=== PATIENT | male | born 1955 | race Caucasian/White ===

== ENCOUNTER → 2023-04-30 09:52 | Outpatient (REF) | payer MEDICARE, SELFPAY ==
[2023-04-30 11:39] LABS: Urine Albumin Negative (Neg - Trace); Urine Bilirubin Negative (Negative); Urine Character Clear (Clear); Urine Color Yellow; Urine Glucose Negative (Negative); Urine Ketone Negative (Negative); Urine Leukocyte Negative (Negative); Urine Nitrite Negative (Negative); Urine Occult Blood Negative (Negative); Urine Urobilinogen Negative (Neg - 1+)
[2023-04-30 11:49] LABS: Calcium 9.3 mg/dl (8.4-10.2)
[2023-04-30 12:28] LABS: Protein/creatinine Ratio 0.1; Urine Protein 9 mg/dl
[2023-05-03 09:14] LABS: Intact PTH 50.5 pg/ml (13.6-85.8)
== END ==
LOC: HWLAB 09:52
PROVIDERS: ATTENDING PHYSICIAN Internal Medicine; FAMILY PHYSICIAN Nurse Practitioner Adult Health
DX: R80.9 Proteinuria, unspecified (principal); Z87.442 Personal history of urinary calculi
CPT/HCPCS: 36415; 81003; 82570; 83970; 84156

== ENCOUNTER → 2023-08-01 06:09 | Outpatient (REF) | payer MEDICARE, SELFPAY ==
[2023-08-01 09:05] LABS: ALT (SGPT) 62 U/L (0-50); AST (SGOT) 39 U/L (17-59); Albumin 3.8 g/dl (3.5-5.0); Alkaline Phosphatase 87 U/L (38-126); Blood Urea Nitrogen 27 mg/dl (9-20); Carbon Dioxide 28 mmol/L (22-30); Chloride 112 mmol/L (98-107); Glucose 115 mg/dl (70-99); HDL Cholesterol 52 mg/dl; LDL Cholesterol, Calculated 78 mg/dl; Potassium 4.3 mmol/L (3.5-5.1); Sodium 140 mmol/L (135-145); Total Bilirubin 0.5 mg/dl (0.2-1.3); Total Cholesterol 152 mg/dl (50-199); Total Protein 6.4 g/dl (6.3-8.2); Triglyceride 110 mg/dl (10-149); Very Low Density Lipoprotein 22 mg/dl (0-30); eGFR > 60.00
[2023-08-01 14:35] LABS: Glycohemoglobin (HgbA1c) 5.6 % (4.0-5.6)
== END ==
LOC: HWLAB 06:09
PROVIDERS: ATTENDING PHYSICIAN Nurse Practitioner Adult Health
DX: R74.01 Elevation of levels of liver transaminase levels (principal); E78.00 Pure hypercholesterolemia, unspecified; R73.02 Impaired glucose tolerance (oral)
CPT/HCPCS: 36415; 80053; 80061; 83036

== ENCOUNTER → 2023-08-07 06:05 | Outpatient (REF) | payer MEDICARE, SELFPAY ==
[2023-08-07 10:16] LABS: ALT (SGPT) 63 U/L (0-50); AST (SGOT) 47 U/L (17-59); Albumin 3.8 g/dl (3.5-5.0); Alkaline Phosphatase 87 U/L (38-126); Blood Urea Nitrogen 24 mg/dl (9-20); Calcium 9.4 mg/dl (8.4-10.2); Carbon Dioxide 25 mmol/L (22-30); Chloride 110 mmol/L (98-107); Glucose 102 mg/dl (70-99); Potassium 4.5 mmol/L (3.5-5.1); Sodium 142 mmol/L (135-145); Total Protein 6.4 g/dl (6.3-8.2); eGFR > 60.00
[2023-08-07 10:18] LABS: % Basophils 0.9 % (0-2); % Eosinophils 5.7 % (0-6); % Immature Granulocytes 0.1 % (0-0.5); % Lymphocytes 18.9 % (20.5-51.1); % Monocytes 8.7 % (1.7-9.3); % Neutrophils 65.7 % (42.2-75.2); Absolute Basophils 0.1 10^3/uL (0-0.2); Absolute Eosinophils 0.4 10^3/uL (0-0.7); Absolute Lymphocytes 1.5 10^3/uL (1.2-3.4); Absolute Monocytes 0.7 10^3/uL (0.1-0.6); Absolute Neutrophils 5.1 10^3/uL (1.4-6.5); Hematocrit 45.1 % (39.0-52.0); Hemoglobin 14.7 g/dL (13.0-18.0); Mean Corp Hgb Conc. 32.6 g/dL (33.0-37.0); Mean Corpuscular Hgb 31.1 pg (27.0-31.0); Mean Corpuscular Volume 95.6 fL (80.0-94.0); Mean Platelet Volume 11.3 fL (7.4-10.4); Nucleated Red Blood Cells % 0 % (-); Platelet Count 153 10^3/uL (130-400); Red Blood Cell Count 4.72 10^6/uL (4.70-6.10); Red Cell Dist. Width 12.8 % (11.5-14.5); White Blood Cell Count 7.7 10^3/uL (4.8-10.8)
[2023-08-09 06:58] LABS: Beta-2-Microglobulin 1.9 mg/L (<=3.0)
== END ==
LOC: HWLAB 06:05
PROVIDERS: ATTENDING PHYSICIAN Internal Medicine Hematology & Oncology; FAMILY PHYSICIAN Nurse Practitioner Adult Health
DX: D47.2 Monoclonal gammopathy (principal)
CPT/HCPCS: 36415; 80053; 82232; 82784; 83521; 84155; 84165; 85025; 86334

== ENCOUNTER → 2023-08-27 07:11 | Outpatient (REF) | payer MEDICARE, SELFPAY | LOC: HWRAD 07:11 | PROVIDERS: ATTENDING PHYSICIAN Nurse Practitioner Adult Health | DX: R74.01 Elevation of levels of liver transaminase levels (principal) | CPT/HCPCS: 76700 ==

== ENCOUNTER → 2023-11-05 06:06 | Outpatient (REF) | payer MEDICARE, SELFPAY ==
[2023-11-05 10:28] LABS: GGTP 59 U/L (15-73); Iron 71 ug/dl (49-181)
[2023-11-05 10:41] LABS: Percent Saturation 24 % (20-50); Total Iron Binding Capacity 293 ug/dl (261-462)
[2023-11-08 00:31] LABS: Mitochondrial M2 Ab, IgG 2.2 Units (0.0-24.9)
[2023-11-08 02:54] LABS: ANA, IgG Reflex to HEp-2 None Detected (None Detected)
[2023-11-08 04:20] LABS: Alpha-1-Antitrypsin 132 mg/dL (90-200); Ceruloplasmin 24 mg/dL (15-30)
== END ==
LOC: HWLAB 06:06
PROVIDERS: ATTENDING PHYSICIAN Physician Assistant; FAMILY PHYSICIAN Nurse Practitioner Adult Health
DX: R74.8 Abnormal levels of other serum enzymes (principal)
CPT/HCPCS: 36415; 82103; 82390; 82728; 82977; 83540; 83550; 86038; 86376; 86381

== ENCOUNTER 2024-03-07 06:26 | Inpatient (IN) | payer MEDICARE, SELFPAY ==
[2024-03-07] VITALS (12 sets, daily range): BP systolic 121–170; BP diastolic 77–104; PULSE 82; O2SAT 99; BMI 30.5
--- NOTE | 2024-03-07 03:36 | ED.GENMED ---
History of Present Illness
<ABDIRASHID Romero - Last Filed: 03/07/24 04:42>
General
Chief Complaint: Cough
Source: patient
Exam Limitations: none
Time Seen by Provider: 03/07/24 03:23
Nursing documentation reviewed up to this point in time: agreed with
History of Present Illness
History of Present Illness:
Pt is a 68 yo M with PMH of HTN who presents to the ED with cough, vomiting, diarrhea and chills since 22:00 last night. He states he began to have a cough yesterday that was severe and caused him to vomit 'phlegm' once during a cough spell. He
states he began to have chills and non-bloody diarrhea also around this time. Pt state he went to bed and then woke up around 01:00 today and vomited again. This time, he describes the vomit as 'actually vomit with food' he ate earlier in the day.
Pt states he has not vomited since then and no longer feels nauseous. He states his stomach does feel 'a little sore' but attributes it to the vomiting and describes it as 'muscle pain.' Pt denies TSAI, fever, rhinorrhea, sore throat, chest pain,
palpitations, changes in urination.
If applicable-neuro sx onset
Date of onset of symptoms: 03/06/24
Time of onset of symptoms: 22:00
Past History
<ABDIRASHID Romero - Last Filed: 03/07/24 04:42>
Past History
ED Past Medical History: HTN, Hypercholesterolemia and Other (UC, PNA, )
ED Past Surgical History: Tonsilectomy and Other (Hernia repair)
Social History
Tobacco: Non-smoker
Alcohol: Occasional
Drug: None
Personal:
Living: alone
Employment: Employed
Review of Systems
<ABDIRASHID Romero - Last Filed: 03/07/24 04:42>
Review of Systems
Allergies reviewed?: Yes
Constitutional: Reports chills; Denies fever, fatigue or night sweats
EENT: Denies sore throat or runny nose
Respiratory: Reports cough; Denies hemoptysis or trouble breathing
Cardiac: Denies chest pain or palpitations
ABD/GI: Reports abdominal pain (described by pt as 'discomfort'), nausea, vomiting and diarrhea; Denies bloody stools
: Denies dysuria, flank pain or dark urine
Musculoskeletal: Denies back pain
Neurological: Denies dizzy, headache, weakness or numbness
Phy Exam
<ABDIRASHID Romero - Last Filed: 03/07/24 04:42>
General Physical Exam
General Presentation: well appearing and no apparent distress
General age: appears stated age
General Skin: warm and dry
General Habitus: normal
General Mental: alert
General Hydration: appears well hydrated
Cardiovascular Exam
Cardiovascular Exam: no murmur and tachycardia
Pulmonary Exam
Pulmonary Exam: chest non tender, decreased breath sounds and generalized wheezing
Oxygen Status: room air
Cough: coarse cough
Gastrointestinal Exam
Gastrointestinal Exam: normal bowel sounds, non tender and soft
Neurological Exam
Neurological Exam: alert, oriented x3 and speech normal
Course
<ABDIRASHID Romero - Last Filed: 03/07/24 04:42>
Orders/Labs/Results
Orders:
Orders
03/07/24 03:37
CR Chest - 2 Views Urgent
Comment:
Reason For Exam: cough, SOB
03/07/24 03:59
CBC/With Diff [Complete Blood Count/With Diff] Urgent
CMP [Comprehensive Metabolic Panel] Urgent
COVID-19 Antigen Urgent
Source: Nasal Swab
Influenza A+B Rapid Molecular Urgent
URIEL Source: Nasal Swab
Specimen Description:
Abnormal Lab Results
03/07/24
03:59
WBC 13.4 H 10^3/uL
(4.8-10.8)
MCV 94.4 H fL
(80.0-94.0)
MCHC 32.8 L g/dL
(33.0-37.0)
MPV 11.0 H fL
(7.4-10.4)
Abs Immat Gran (auto) 0.1 H 10^3/uL
(0-0.05)
Absolute Neuts (auto) 11.7 H 10^3/uL
(1.4-6.5)
Absolute Lymphs (auto) 0.5 L 10^3/uL
(1.2-3.4)
Absolute Monos (auto) 0.9 H 10^3/uL
(0.1-0.6)
Neutrophils % 87.0 H %
(42.2-75.2)
Lymphocytes % 3.8 L %
(20.5-51.1)
BUN 31 H mg/dl
(9-20)
Glucose 121 H mg/dl
(70-99)
ALT 63 H U/L
(0-50)
03/07/24 03:59
03/07/24 03:59
Vital Signs
Initial and Last Documented VS:
Initial Vital Signs
Temp Pulse Resp BP Pulse Ox
98.9 F 118 24 170/104 98
03/07/24 02:18 03/07/24 02:18 03/07/24 02:18 03/07/24 02:18 03/07/24 02:18
Last Documented Vital Signs
Temp Pulse Resp BP Pulse Ox
99.4 F 112 21 157/93 98
03/07/24 04:12 03/07/24 04:04 03/07/24 04:04 03/07/24 04:03 03/07/24 02:18
<Harry Mercedes, DO - Last Filed: 03/07/24 05:44>
Orders/Labs/Results
Orders:
Orders
03/07/24 03:37
CR Chest - 2 Views Urgent
Comment:
Reason For Exam: cough, SOB
03/07/24 03:59
CBC/With Diff [Complete Blood Count/With Diff] Urgent
CMP [Comprehensive Metabolic Panel] Urgent
COVID-19 Antigen Urgent
Source: Nasal Swab
Influenza A+B Rapid Molecular Urgent
URIEL Source: Nasal Swab
Specimen Description:
Abnormal Lab Results
03/07/24
03:59
WBC 13.4 H 10^3/uL
(4.8-10.8)
MCV 94.4 H fL
(80.0-94.0)
MCHC 32.8 L g/dL
(33.0-37.0)
MPV 11.0 H fL
(7.4-10.4)
Abs Immat Gran (auto) 0.1 H 10^3/uL
(0-0.05)
Absolute Neuts (auto) 11.7 H 10^3/uL
(1.4-6.5)
Absolute Lymphs (auto) 0.5 L 10^3/uL
(1.2-3.4)
Absolute Monos (auto) 0.9 H 10^3/uL
(0.1-0.6)
Neutrophils % 87.0 H %
(42.2-75.2)
Lymphocytes % 3.8 L %
(20.5-51.1)
BUN 31 H mg/dl
(9-20)
Glucose 121 H mg/dl
(70-99)
ALT 63 H U/L
(0-50)
03/07/24 03:59
03/07/24 03:59
Vital Signs
Initial and Last Documented VS:
Initial Vital Signs
Temp Pulse Resp BP Pulse Ox
98.9 F 118 24 170/104 98
03/07/24 02:18 03/07/24 02:18 03/07/24 02:18 03/07/24 02:18 03/07/24 02:18
Last Documented Vital Signs
Temp Pulse Resp BP Pulse Ox
99.4 F 112 21 157/93 98
03/07/24 04:12 03/07/24 04:04 03/07/24 04:04 03/07/24 04:03 03/07/24 02:18
<ABDIRASHID Romero - Last Filed: 03/07/24 04:42>
MDM/Problems Addressed
Differential Diagnosis Includes:
PNA, gastroenteritis, viral bronchitis
<ABDIRASHID Romero - Last Filed: 03/07/24 04:42>
*Critical Care Note
Total Time (30-74mins, 75-104mins- exclusive of procedures): Not Applicable
ED Attending Note
<ABDIRASHID Romero - Last Filed: 03/07/24 04:42>
-
Portions of this chart may have been created with voice recognition software.� Occasional wrong word or��sound alike� substitutions may have occurred due to the inherent limitations of voice recognition software.
<Harry Mercedes DO - Last Filed: 03/07/24 05:44>
ED Attending Note
Patient seen and examined by attending physician: Yes
I performed the substantive portion of visit, reviewed & personally made and approve the management plan that is documented in note by myself or ANT.: Yes
ED Attending Note:
Pleasant 68-year-old male presents the emergency department with cough and near syncopal episode. He has been having vomiting, diarrhea, and chills since 10 PM Friday night. Yesterday he had a severe productive cough with vomiting up phlegm. He
states that he had diarrhea and chills during this time. Patient awakened to vomiting. He states that he was coughing and vomiting so vigorously that he nearly passed out. He became concerned because he lives alone. Patient states that the
vomiting has subsided but his cough is persistent. He does report abdominal pain every time he does cough. Denies chest pain or true shortness of breath. Patient was seen in conjunction with the PA student. I have reviewed and agree with the
history and treatment plan presented. On my independent physical exam, patient is awake, alert, and oriented x3 moderate acute distress. Heart is regular rate and rhythm. Lungs are diminished in the bases with generalized wheezing throughout.
Abdomen is soft and slightly distended which patient states is normal for him. Good bowel sounds x 4 quadrants. Skin is warm and dry. He moves all 4 extremities. He is mentating appropriately with a normal affect.
Discharge Plan
Departure
Patient Disposition: Admit
Date of Disposition: 03/07/24
Time of Disposition: 05:43
Admit to: Telemetry
Presentation/result/management discussed w/ accepting MD/DO: Hospitalist
Discharge Problem:
Aspiration pneumonia, Fever, Cough, Near syncope
Prescriptions:
No Action
benazepril 10 mg Tablet
10 mg PO DAILY
rosuvastatin 20 mg Tablet
20 mg PO DAILY
Referrals:
Beatriz Goyal DO [Family Provider] -
Interventions
Interventions:
*Risk Screen - Suicide Last Done: 03/07/24 02:18
*Neglect/Abuse Screening Last Done: 03/07/24 04:13
*ED COVID-19 Vaccine History Last Done: 03/07/24 04:13
LH-Pucuyi-Qxamosbbsu Assessment Last Done: 03/07/24 04:13
ED- Pulmonary Assessment Last Done: 03/07/24 04:13
Discharge Date and Time
Print Language: SENEGALESE
[2024-03-07 04:18] LABS: % Basophils 0.3 % (0-2); % Eosinophils 1.6 % (0-6); % Immature Granulocytes 0.4 % (0-0.5); % Lymphocytes 3.8 % (20.5-51.1); % Monocytes 6.9 % (1.7-9.3); Absolute Eosinophils 0.2 10^3/uL (0-0.7); Absolute Immature Granulocytes 0.1 10^3/uL (0-0.05); Absolute Lymphocytes 0.5 10^3/uL (1.2-3.4); Absolute Monocytes 0.9 10^3/uL (0.1-0.6); Absolute Neutrophils 11.7 10^3/uL (1.4-6.5); Hemoglobin 15.4 g/dL (13.0-18.0); Mean Corp Hgb Conc. 32.8 g/dL (33.0-37.0); Mean Corpuscular Hgb 30.9 pg (27.0-31.0); Mean Corpuscular Volume 94.4 fL (80.0-94.0); Nucleated Red Blood Cells % 0 % (-); Platelet Count 147 10^3/uL (130-400); Red Blood Cell Count 4.98 10^6/uL (4.70-6.10); Red Cell Dist. Width 12.8 % (11.5-14.5); White Blood Cell Count 13.4 10^3/uL (4.8-10.8)
[2024-03-07 04:31] LABS: ALT (SGPT) 63 U/L (0-50); AST (SGOT) 42 U/L (17-59); Albumin 4.2 g/dl (3.5-5.0); Alkaline Phosphatase 85 U/L (38-126); Blood Urea Nitrogen 31 mg/dl (9-20); COVID-19 Antigen Negative (Negative); Calcium 9.4 mg/dl (8.4-10.2); Carbon Dioxide 23 mmol/L (22-30); Chloride 107 mmol/L (98-107); Glucose 121 mg/dl (70-99); Potassium 4.3 mmol/L (3.5-5.1); Sodium 142 mmol/L (135-145); Total Bilirubin 0.7 mg/dl (0.2-1.3); Total Protein 6.7 g/dl (6.3-8.2); eGFR > 60.00
--- NOTE | 2024-03-07 06:18 | HPS.HSE ---
Family Physician
-
Family Physician: Beatriz Goyal DO
Chief Complaint
-
Cough, N/V/D
History of Present Illness
Patient is a 68y M with PMH significant for hypertension who presents to ED complaining of cough with N/V/D. Patient states that he has had mild, non-productive cough for the past 3 days or so. This evening around 10PM he had harsh paroxysms of
cough accompanied by nausea / 'dry heaves' and had loose bowels x 2 episodes. He states that he was 'wiped ut' following this and he fell asleep in a nearby chair. He woke around 1 AM with recurrent coughing and then N/V x 1 episode.
Patient states that he had diffuse muscle pain and felt 'tingling' all over. He denies any shaking chills or subjective fever. No urinary complaints.
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
In the ED he is resting comfortably. He has throat congestion and intermittent cough during exam.
Medical History
Past Medical History
Past Medical History: Reports Other
Additional Past Medical History:
Hypertension
Nephrolithiasis
Past Surgical History: Reports Other
Additional Past Surgical History:
Lithotripsy
Robotic-Assisted B/L Inguinal Hernia Repair
Social History
Tobacco: Non-smoker
Alcohol: Occasional
Drug: None
Family History
Family History: Not pertinent
Allergies / Home Medications
Allergies reflects when Allergies were last updated in [facility].
Home Medications with original date entered in [facility]
Allergy/Medication List:
Allergies
Allergy/AdvReac Type Severity Reaction Status Date / Time
Influenza Vacc,Tr Allergy BAD FLU Verified 03/07/24 02:20
*RETIRED-12/10/11
[Influenza Vacc,Tri 2008]
CATS,RAGWEED,CHICKEN FEATHERS Allergy SNEEZING,WATERY Uncoded 03/07/24 02:20
EYES
strawberries Allergy severe Uncoded 03/07/24 02:20
upset
stomach
Home Medications
benazepril 10 mg tablet 10 mg PO DAILY 05/10/22
rosuvastatin 20 mg tablet 20 mg PO DAILY 05/10/22
aspirin 81 mg chewable tablet 81 mg PO DAILY 03/07/24
multivitamin 1 tab PO DAILY 03/07/24
Review of Systems
-
History Source: Patient
A 12 point ROS was completed and negative except as noted: Yes
Constitutional: Reports Fatigue; Denies Fever or Chills
EENT: Denies Sore Throat
Respiratory: Reports Cough; Denies Hemoptysis or Trouble Breathing
Cardiac: Denies Chest Pain, Diaphoresis or Palpitations
Abdomen/GI: Reports Nausea, Vomiting and Diarrhea; Denies Abdominal Pain, Bloody Stools or Black Stools
: Denies Dysuria, Frequency or Flank Pain
Musculoskeletal: Reports Muscle Pain; Denies Joint Pain or Edema
Neurological: Reports Weakness; Denies Dizzy or Headache
Psych: Denies Depression or Anxiety
Physical Exam
Vital Signs
Vital Signs
Temp Pulse Resp BP Pulse Ox
99.4 F 112 21 157/93 98
03/07/24 04:12 03/07/24 04:04 03/07/24 04:04 03/07/24 04:03 03/07/24 02:18
Physical Exam
General: Other (68y M in no acute distress.)
HEENT: Moist mucous membranes, PERRLA and Other (Congested pharynx evident on speaking - poor / ineffectual cough.)
Respiratory: Other (Scattered coarse breath sounds throughout with diffuse wheezes. No rales.)
Cardiac: S1/S2 and Tachycardia; No Murmur
GI: Soft, Non Tender, Non Distended and Normal Bowel Sounds
Musculoskeletal: No Clubbing, No Cyanosis and No Edema
Neuro: AO x 3
Laboratory Results
-
03/07/24 03:59
03/07/24 03:59
Laboratory Results
Total Bilirubin 0.7 mg/dl (0.2-1.3) 03/07/24 03:59
AST 42 U/L (17-59) 03/07/24 03:59
ALT 63 U/L (0-50) H 03/07/24 03:59
Alkaline Phosphatase 85 U/L (38-126) 03/07/24 03:59
Impression/Plan
-
A/P: Patient is a 68y M with PMH significant for hypertension who presents to ED complaining of cough, N/V/D and weakness.
Sepsis / Pneumonia
- Admit for further evaluation and treatment.
- Patient presents with tachycardia, tachypnea, leukocytosis and cough / CXR suspicious for pneumonia.
- Associated GI symptoms raising possibility of atypical or viral infection.
- IV abx with ceftriaxone / doxycycline for now.
- Supportive care including PRN nebs, chest PT, etc.
- Follow for clinical improvement.
- Follow temp curve.
- Monitor for any new / worsening symptoms.
- IVF support.
- Speech eval for ? aspiration risk.
Benign Hypertension
- BP elevated in the ED.
- Continue benazepril (has been on this for quite some time).
- Adjust regimen as needed for adequate control.
DVT Prophylaxis: Lovenox
Code Status: Full
[2024-03-07] MEDS: UNASYN IV (06:44)
[2024-03-07 09:51] LABS: Troponin I < 0.012 ng/ml
--- NOTE | 2024-03-07 09:57 | W.PN.UPDATE ---
Update Note
Progress Note Update
Admitted this morning by Dr. Esquivel for sepsis and possible pneumonia.
Afeb, HD stable , improving HR. SaO2 on RA .
Labs noted.
Continue with abx treatments as planned. Follow Cx data.
--- NOTE | 2024-03-07 10:33 | PTOTSP ---
SPEECH THERAPY SWALLOW EVALUATION:
Patient exhibits grossly functional oropharyngeal swallow at this time. Patient without significant predisposing dysphagia risk factors. Patient endorsed history of coughing with solids for past several days, though no signs concerning for
aspiration were observed during this evaluation. Currently with pneumonia. Recommend continue Regular texture solids, thin liquids. Medications whole with liquid as best tolerated. General aspiration precautions. ST to follow briefly to assess diet
tolerance, modify as appropriate, monitor labs and CXR, and determine indication for instrumental assessment of swallowing if appropriate.
RECOMMEND:
1) Regular texture diet, thin liquids
2) Medications whole with liquid as best tolerated
3) General aspiration precautions
4) ST to follow up briefly
--- NOTE | 2024-03-07 10:44 | PTCARENOTE ---
Received patient from ED into room 2121. Patient AAOx3, VSS, ambulatory in room with standby assist. Patient with occasional nonproductive cough, denies any trouble swallowing/eating food, cleared speech eval. Patient denies any pain or nausea at
this time, states occasional chest discomfort r/t frequent cough, NSR with occasional PVCs on tele monitor. Patient oriented to room and call pichardo, regular diet order entered for patient.
[2024-03-07] MEDS: ROCEPHIN 1000 MG IV (10:54)
[2024-03-07] MEDS: VIBRAMYCIN 100 MG PO ×2 (10:55→19:39)
[2024-03-07] MEDS: NSS 1000 IV ×2 (10:55→19:40)
[2024-03-07] MEDS: ZESTRIL 10 MG PO (10:55)
[2024-03-07] MEDS: STERILE WATER FOR INJECTION 10 ML IV (10:55)
[2024-03-07] MEDS: LOW STRENGTH ASPIRIN 81 MG PO (10:58)
[2024-03-07 15:38] LABS: Troponin I < 0.012 ng/ml
[2024-03-07] MEDS: LOVENOX 40 MG SC (17:00)
[2024-03-07 20:57] LABS: Troponin I < 0.012 ng/ml
[2024-03-08 03:14] VITALS: BP 114/61
[2024-03-08] MEDS: NSS 1000 IV (04:44)
[2024-03-08 05:41] VITALS: BMI 30.7
[2024-03-08 06:58] LABS: Hematocrit 41.4 % (39.0-52.0); Hemoglobin 13.3 g/dL (13.0-18.0); Mean Corp Hgb Conc. 32.1 g/dL (33.0-37.0); Mean Corpuscular Hgb 30.9 pg (27.0-31.0); Mean Corpuscular Volume 96.3 fL (80.0-94.0); Mean Platelet Volume 11.3 fL (7.4-10.4); Platelet Count 124 10^3/uL (130-400); White Blood Cell Count 6.8 10^3/uL (4.8-10.8)
[2024-03-08 07:05] VITALS: BP 137/85
[2024-03-08 07:08] LABS: Blood Urea Nitrogen 18 mg/dl (9-20); Calcium 8.2 mg/dl (8.4-10.2); Carbon Dioxide 25 mmol/L (22-30); Chloride 109 mmol/L (98-107); Estimated Creatinine Clearance 103 ml/min; Glucose 86 mg/dl (70-99); Sodium 140 mmol/L (135-145); eGFR > 60.00
--- NOTE | 2024-03-08 07:11 | W.PN.HOSP.TC ---
Addendum entered and electronically signed by Torri Parker MD 03/08/24 16:44:
I saw and evaluated the patient independently. I reviewed the resident�s note and agree with findings and plan as documented by Dr. Garcia.
GENERAL: well developed, well nourished, male in no apparent distress
HEENT: NC/AT--no O2 requirements
HEART: regular rate and rhythm, +S1, +S2
LUNGS : clear to auscultation bilaterally
ABDOM: soft, nontender, nondistended, + bowel sounds
EXT: no cyanosis, clubbing, or edema
NEUROLOGIC: grossly intact
sepsis (POA) due to PNA--no O2 requirements--started on rocephin/doxy--feeling better--transition to oral ABX (augmentin) and OK for d/c--will need follow up CXR after ABX complete
essential HTN -- cont benzapril
HLD--cont rosuvastatin
ok for d/c--note given to return to work for
Original Note:
Today's Communication/Plan
-
Transition to oral abx on discharge today
Assessment / Plan
Assessment / Plan
A/P: Patient is a 68y M with PMH significant for hypertension who presents to ED complaining of cough, N/V/D and weakness.
#Sepsis / Pneumonia
- Patient presented with tachycardia, tachypnea, leukocytosis and cough in ED
-CXR: Low lung volumes with trace left basilar opacities which may represent pneumonia or atelectasis.
- Continue supportive care including PRN nebs
- Follow temp curve.
- Discontinue IVF
- Discontinue IV abx with ceftriaxone / doxycycline and transition to oral antibiotic Augmentin on discharge
- Speech eval:Recommended regular diet, thin liquids
#Essential Hypertension
- BP elevated in the ED.
- Continue benazepril
#HLD
- Statin was held due to elevated ALT 63, other LFTs WNL
-Resume on discharge
DVT Prophylaxis: Lovenox
Code Status: Full
Anticipated Discharge: Today
Subjective/Interval History
-
Date of Service: March 08, 2024
Patient feels as better compared to yesterday. Regular bowel movements present.
Objective Data
-
Labs:
Laboratory Results
03/08/24
06:16
WBC 6.8
Hgb 13.3
Hct 41.4
Plt Count 124 L
Sodium 140
Potassium 4.0
Chloride 109 H
Carbon Dioxide 25
BUN 18
Creatinine 0.7
Glucose 86
Calcium 8.2 L
Vital Signs:
Vital Signs
Temp Pulse Resp BP Pulse Ox
98.1 F 70 18 114/61 97
03/08/24 03:14 03/08/24 03:14 03/08/24 03:14 03/08/24 03:14 03/08/24 03:14
I&O
03/07/24 03/08/24 03/09/24
06:59 06:59 06:59
Intake Total 2720 / 2720
Output Total 250 / 250
Balance 2470 / 2470
Review of Systems
-
History Source: Patient
Constitutional: Denies Fever or Chills
EENT: Denies Sore Throat
Respiratory: Denies Trouble Breathing
Cardiac: Denies Chest Pain or Palpitations
Abdomen/GI: Denies Abdominal Pain
Neuro: Denies Headache
Physical Exam
-
General: Well Developed and No Apparent Distress
HEENT: Normocephalic
Respiratory: Clear to Auscultation
Cardiac: Regular Rhythm and S1/S2; Negative Murmur
GI: Soft, Nontender and Nondistended
Musculoskeletal: No Edema
Skin: Warm and Dry
Neuro: Awake, Alert and Oriented
Psych: Intact Judgement/Insight
[2024-03-08] MEDS: ZESTRIL 10 MG PO (08:07)
[2024-03-08] MEDS: LOW STRENGTH ASPIRIN 81 MG PO (08:07)
[2024-03-08] MEDS: VIBRAMYCIN 100 MG PO (08:07)
[2024-03-08 09:00] VITALS: BP 105/76; PULSE 81; O2SAT 97
[2024-03-08] MEDS: ROCEPHIN 1000 MG IV (10:23)
[2024-03-08] MEDS: STERILE WATER FOR INJECTION 10 ML IV (10:23)
--- NOTE | 2024-03-08 10:28 | PTOTSP ---
pt currently demonstrates ability to complete simple ADLs, functional transfers, ambulation with supervision to no assistance. no acute OT needs identified at this time, will sign off.
[2024-03-08 11:00] VITALS: BP 157/92
--- NOTE | 2024-03-08 13:48 | CM ---
Patient seen at bedside with physicians. Patient stated that he lives alone in an apartment. Patient stated he goes to [facility] for pharmacy needs and that he has PCP Dr. Goyal. Patient requested note to return to work and plan is for
discharge home with no VN needs. Patient stated that he would have ride home. CM will continue to follow for discharge planning needs.
Plan; home with no needs .
--- NOTE | 2024-03-08 15:39 | W.DCSUMMARY ---
Addendum entered and electronically signed by Torri Parker MD 03/08/24 16:46:
Read, reviewed, and agree. See same day progress note for additional details. Time spent coordinating care, DC planning, review of DC plan of care with resident, transition of care, review of records in EMR, med rec, consults, notes, d/w
consultants, nursing, family, and CM = < 30 minutes.
Original Note:
Discharge Summary
Discharge Data
Date of Admission: 03/07/24
Date of Discharge: 03/08/24
-
Pending Results: No
Hospital Course
Discharging Physician : , Dr. Garcia
Disposition : Home
Primary care physician : Dr.Francine Goyal
Principal Discharge diagnosis : Community Acquired Pneumonia
Chronic Discharge diagnosis : Essential Hypertension, Hyperlipidemia
Hospital Course : This is a 68-year-old male patient with PMH of HTN and hyperlipidemia who presented to the ED with cough, nausea, vomiting and diarrhea. He had tachycardia, tachypnea, leukocytosis and with chest x-ray findings suspicious for
pneumonia. He was admitted for sepsis/pneumonia. He was started on IV ceftriaxone and p.o. doxycycline along with IVF. Speech eval with regular diet and thin liquids. Statin was held due to mildly elevated ALT of 63. Patient with clinical
improvement the following day and was stable for discharge. Resumed statin. Transition to oral antibiotic of Augmentin to continue course for 10 days. His other chronic problems were stable.
Important imaging findings :
CXR 03/07: Low lung volumes with trace left basilar opacities which may represent pneumonia or atelectasis.
Discharge Plan
-
Patient Disposition: Home (Routine Discharge)
Discharge Diagnosis/Procedures: Community Acquired Pneumonia, Hypertension
Condition: Good
Diet: Low Cholesterol
Activity: As tolerated and No strenuous activity
Additional Activity: pt may return to work on Feb
Driving Restrictions: As prior to admission
Bathing Restrictions: None
Others Tests: chest xray in 1 week after finishing antibiotics
Referrals:
Beatriz Goyal, [Family Provider] - in less than 1 week
Additional Discharge Medication Instructions: If experiencing symptoms such as worsening shortness of breath, continued high grade fevers or vomiting please return to hospital. Follow up with your primary care physician within 1 week for further
care and Chest xray after finishing antibiotic course.
Prescriptions:
New
amoxicillin-pot clavulanate 875-125 mg tablet
1 tab PO BID 10 Days Qty: 20 0RF
Continued
benazepril 10 mg Tablet
10 mg PO DAILY
rosuvastatin 20 mg Tablet
20 mg PO DAILY
multivitamin Tablet
1 tab PO DAILY
aspirin 81 mg Tablet,Chewable
81 mg PO DAILY
Discharge Orders:
Discharge Patient (As Directed); Ordered 03/08/24
Ordered By: Melodie Garcia
Discharge Date and Time
Print Language: SWISS
[2024-03-08 15:52] VITALS: BP 137/79
--- NOTE | 2024-03-08 15:52 | PTCARENOTE ---
Patient discharged home. This RN removed patient's IV and tele pack and reviewed discharge instructions with patient who verbalized understanding. Work note provided per MD. Patient dressed and gathered belongings in room independently. Patient
drove self to hospital, states he feels safe to drive home. Patient taken down to main lobby via staff escort and wheelchair, car parked in lot in front of lobby/ER.
[2024-03-08 20:11] LABS: Hepatitis C Antibody Negative (Negative)
== END 2024-03-08 16:00 | disposition home or self-care (01) | DRG 871 ==
LOC: 2 NORTH 06:26
PROVIDERS: Internal Medicine; Student in an Organized Health Care Education/Training Program; ADMITTING PHYSICIAN Hospitalist; ATTENDING PHYSICIAN Internal Medicine; EMERGENCY PHYSICIAN Student in an Organized Health Care Education/Training Program; FAMILY PHYSICIAN Internal Medicine
DX: A41.9 Sepsis, unspecified organism (principal); J18.9 Pneumonia, unspecified organism; Z11.52 Encounter for screening for COVID-19; I10 Essential (primary) hypertension; E78.00 Pure hypercholesterolemia, unspecified; Z59.89 Other problems related to housing and economic circumstances
CPT/HCPCS: 71046; 80048; 80053; 84484; 85025; 85027; 86803; 87449; 87502; 87811; 92526; 92610; 93005; 97116; 97163; 97165; 99285

== ENCOUNTER → 2024-04-30 07:14 | Outpatient (REF) | payer MEDICARE, SELFPAY ==
[2024-04-30 08:50] LABS: % Basophils 1.2 % (0-2); % Eosinophils 8.4 % (0-6); % Immature Granulocytes 0.2 % (0-0.5); % Lymphocytes 21.3 % (20.5-51.1); % Monocytes 10.4 % (1.7-9.3); % Neutrophils 58.5 % (42.2-75.2); Absolute Basophils 0.1 10^3/uL (0-0.2); Absolute Eosinophils 0.5 10^3/uL (0-0.7); Absolute Lymphocytes 1.2 10^3/uL (1.2-3.4); Absolute Monocytes 0.6 10^3/uL (0.1-0.6); Absolute Neutrophils 3.3 10^3/uL (1.4-6.5); Hematocrit 46.4 % (39.0-52.0); Hemoglobin 15.1 g/dL (13.0-18.0); Mean Corp Hgb Conc. 32.5 g/dL (33.0-37.0); Mean Corpuscular Hgb 30.8 pg (27.0-31.0); Mean Corpuscular Volume 94.7 fL (80.0-94.0); Mean Platelet Volume 10.6 fL (7.4-10.4); Nucleated Red Blood Cells % 0 % (-); Platelet Count 145 10^3/uL (130-400); Red Cell Dist. Width 12.6 % (11.5-14.5); Urine Albumin 1+ (Neg - Trace); Urine Bilirubin Negative (Negative); Urine Character Clear (Clear); Urine Color Yellow; Urine Glucose Negative (Negative); Urine Ketone Negative (Negative); Urine Leukocyte Negative (Negative); Urine Nitrite Negative (Negative); Urine Occult Blood Negative (Negative); Urine Specific Gravity 1.025 (<1.030); Urine Urobilinogen Negative (Neg - 1+); White Blood Cell Count 5.7 10^3/uL (4.8-10.8)
[2024-04-30 09:10] LABS: Urine Hyaline Cast 0-2 /LPF (0-2); Urine Mucus Moderate; Urine Red Blood Cell 0-2 /HPF (0-2); Urine Squamous Cell 0-2 /LPF (Few); Urine White Cell 0-2 /HPF (0-5)
[2024-04-30 09:39] LABS: ALT (SGPT) 86 U/L (0-50); AST (SGOT) 60 U/L (17-59); Albumin 3.8 g/dl (3.5-5.0); Alkaline Phosphatase 97 U/L (38-126); Blood Urea Nitrogen 23 mg/dl (9-20); Calcium 9.4 mg/dl (8.4-10.2); Carbon Dioxide 29 mmol/L (22-30); Chloride 109 mmol/L (98-107); Direct Bilirubin 0.2 mg/dl (0.0-0.4); Glucose 91 mg/dl (70-99); HDL Cholesterol 51 mg/dl; LDL Cholesterol, Calculated 71 mg/dl; Potassium 4.3 mmol/L (3.5-5.1); Sodium 142 mmol/L (135-145); Total Bilirubin 0.7 mg/dl (0.2-1.3); Total Cholesterol 141 mg/dl (50-199); Total Protein 6.4 g/dl (6.3-8.2); Triglyceride 98 mg/dl (10-149); Very Low Density Lipoprotein 19 mg/dl (0-30); eGFR > 60.00
[2024-04-30 10:10] LABS: PSA, Total - Screen 3.17 ng/ml (0.0-4.0); TSH Reflex To Free T4 1.76 uIU/ml (0.47-4.68)
== END ==
LOC: HWLAB 07:14
PROVIDERS: ATTENDING PHYSICIAN Nurse Practitioner Adult Health
DX: I10 Essential (primary) hypertension (principal); I25.10 Atherosclerotic heart disease of native coronary artery without angina pectoris; R80.9 Proteinuria, unspecified; D47.2 Monoclonal gammopathy; E78.00 Pure hypercholesterolemia, unspecified; J18.9 Pneumonia, unspecified organism; Z12.5 Encounter for screening for malignant neoplasm of prostate
CPT/HCPCS: 36415; 71046; 80053; 80061; 81003; 81015; 82248; 84443; 85025; G0103

== ENCOUNTER → 2024-06-03 07:44 | Outpatient (REF) | payer MEDICARE, SELFPAY ==
[2024-06-03 10:24] LABS: ALT (SGPT) 80 U/L (0-50); AST (SGOT) 47 U/L (17-59); Albumin 3.9 g/dl (3.5-5.0); Alkaline Phosphatase 93 U/L (38-126); Direct Bilirubin 0.2 mg/dl (0.0-0.4); Total Bilirubin 0.9 mg/dl (0.2-1.3); Total Protein 6.4 g/dl (6.3-8.2)
== END ==
LOC: HWLAB 07:44
PROVIDERS: ATTENDING PHYSICIAN Nurse Practitioner Adult Health
DX: R79.89 Other specified abnormal findings of blood chemistry (principal)
CPT/HCPCS: 36415; 80076

== ENCOUNTER → 2024-08-31 11:46 | Outpatient (REF) | payer MEDICARE, SELFPAY ==
[2024-08-31 13:08] LABS: ALT (SGPT) 96 U/L (0-50); AST (SGOT) 43 U/L (17-59); Albumin 3.9 g/dl (3.5-5.0); Alkaline Phosphatase 75 U/L (38-126); Total Bilirubin 0.8 mg/dl (0.2-1.3); Total Protein 6.2 g/dl (6.3-8.2)
== END ==
LOC: REG 11:46
PROVIDERS: ATTENDING PHYSICIAN Internal Medicine Gastroenterology; FAMILY PHYSICIAN Nurse Practitioner Adult Health
DX: R74.8 Abnormal levels of other serum enzymes (principal)
CPT/HCPCS: 36415; 80076

== ENCOUNTER → 2024-09-07 14:32 | Outpatient (REF) | payer MEDICARE, SELFPAY | LOC: RAD 14:32 | PROVIDERS: ATTENDING PHYSICIAN Nurse Practitioner Adult Health | DX: S00.03XA Contusion of scalp, initial encounter (principal); H57.02 Anisocoria | CPT/HCPCS: 70450 ==

== ENCOUNTER → 2024-09-11 08:01 | Outpatient (REF) | payer MEDICARE, SELFPAY | LOC: MRI 08:01 | PROVIDERS: ATTENDING PHYSICIAN Nurse Practitioner Adult Health | DX: G93.9 Disorder of brain, unspecified (principal); G93.0 Cerebral cysts; H57.02 Anisocoria; H53.8 Other visual disturbances | CPT/HCPCS: 70543; 70553; A9575 ==

== ENCOUNTER → 2024-09-28 06:54 | Outpatient (REF) | payer MEDICARE, SELFPAY ==
[2024-10-01 13:22] LABS: 24 Hour Urine Total Volume 700 mL; Ur Free Lambda Excretion/day 12.64 mg/d; Urine Collection Length 24 hr
== END ==
LOC: HWLAB 06:54
PROVIDERS: ATTENDING PHYSICIAN Internal Medicine Hematology & Oncology; FAMILY PHYSICIAN Nurse Practitioner Adult Health
DX: D47.2 Monoclonal gammopathy (principal)
CPT/HCPCS: 81050; 83520; 84156; 86335

== ENCOUNTER → 2024-11-25 06:12 | Outpatient (REF) | payer MEDICARE, SELFPAY ==
[2024-11-25 09:50] LABS: Hematocrit 44.2 % (39.0-52.0); Hemoglobin 14.3 g/dL (13.0-18.0); Mean Corp Hgb Conc. 32.4 g/dL (33.0-37.0); Mean Corpuscular Volume 94.2 fL (80.0-94.0); Nucleated Red Blood Cells % 0 % (-); Platelet Count 136 10^3/uL (130-400); Red Cell Dist. Width 12.9 % (11.5-14.5)
[2024-11-25 09:52] LABS: ALT (SGPT) 63 U/L (0-50); AST (SGOT) 35 U/L (17-59); Albumin 4.1 g/dl (3.5-5.0); Alkaline Phosphatase 88 U/L (38-126); Blood Urea Nitrogen 20 mg/dl (9-20); Calcium 9.3 mg/dl (8.4-10.2); Carbon Dioxide 28 mmol/L (22-30); Chloride 111 mmol/L (98-107); Glucose 96 mg/dl (70-99); Potassium 4.0 mmol/L (3.5-5.1); Sodium 142 mmol/L (135-145); Total Protein 6.6 g/dl (6.3-8.2); eGFR > 60.00
== END ==
LOC: HWLAB 06:12
DX: R10.30 Lower abdominal pain, unspecified (principal)
CPT/HCPCS: 36415; 80053; 85025

== ENCOUNTER → 2024-12-09 10:40 | Outpatient (REF) | payer MEDICARE, SELFPAY | LOC: RAD 10:40 | PROVIDERS: FAMILY PHYSICIAN Nurse Practitioner Adult Health | DX: R10.30 Lower abdominal pain, unspecified (principal) | CPT/HCPCS: 74177; Q9967 ==

== ENCOUNTER 2024-12-28 09:10 | Emergency (ER) | payer MEDICARE, SELFPAY ==
[2024-12-28 09:13] VITALS: BP 161/101
[2024-12-28 09:43] LABS: Hematocrit 45.1 % (39.0-52.0); Hemoglobin 15.1 g/dL (13.0-18.0); Mean Corp Hgb Conc. 33.5 g/dL (33.0-37.0); Mean Corpuscular Volume 92.8 fL (80.0-94.0); Nucleated Red Blood Cells % 0 % (-); Platelet Count 152 10^3/uL (130-400); Red Cell Dist. Width 12.7 % (11.5-14.5)
--- NOTE | 2024-12-28 09:45 | ED.GENMED ---
History of Present Illness
General
Chief Complaint: Abdominal Pain
Source: patient
Exam Limitations: none
Time Seen by Provider: 12/28/24 09:21
History of Present Illness
History of Present Illness:
69-year-old male complaining of abdominal pain. At times rating to testicle. Symptoms x 2 days. Appetite is great. Bowel movements are normal. No blood or mucus in the stool. No nausea or vomiting. Patient was diagnosed with a hernia few
weeks ago. Was told if he had any recurring pain to go immediately to the ER for reevaluation patient is somewhat unsure why he had the CAT scan done 2 weeks ago.
Past History
Past History
ED Past Medical History: HTN, Hypercholesterolemia and Other (UC, PNA, )
ED Past Surgical History: Tonsilectomy and Other (Hernia repair)
Social History
Tobacco: Non-smoker
Alcohol: Occasional
Drug: None
Personal:
Living: alone
Employment: Employed
Review of Systems
Review of Systems
All Other Systems: Not applicable
Constitutional: Denies fever
Respiratory: Reports no symptoms
Cardiac: Reports no symptoms
Phy Exam
Physical Exam
Physical Exam:
GENERAL: Alert and oriented in no apparent distress
EYE: Orbits normal.
NECK: Supple
CARDIAC: Regular rate and rhythm without any obvious murmurs.
LUNGS: Clear breath sounds,normal
ABDOMEN: Distended and somewhat bulbous but soft. Good bowel sounds. No rebound or guarding no mass or hernia. Mild periumbilical tenderness had a small hernia defect.
NEUROLOGICAL: Alert and oriented , grossly non-focal
SKIN: Warm and dry, no rash or lesion, no discoloration, skin intact.
MUSCULOSKELETAL: No edema,no deformity.Good color
PSYCH: Normal and appropriate interaction.
Course
Orders/Labs/Results
Orders:
Orders
12/28/24 09:29
CMP [Comprehensive Metabolic Panel] Urgent
Complete Blood Count/With Diff Urgent
Lipase Urgent
Comment: ADD ON
12/28/24 09:37
Add On- LAB Urgent
Tests Added?: lipase
12/28/24 09:38
CT Abd/pel W Iv And Oral Contr Urgent
Comment:
Reason For Exam: Abdominal pain/known hernia
IV Insert/Care/Rem.- Treatment PRN
0.9% Sodium Chloride 500 ml [Nss] 500 ml IV BOLUS
Iohexol [Omnipaque] See Protocol PO NOW STA
12/28/24 09:43
Urinalysis Reflex To Culture Urgent
Abnormal Lab Results
12/28/24
09:29
MCH 31.1 H pg
(27.0-31.0)
MPV 10.7 H fL
(7.4-10.4)
Absolute Lymphs (auto) 0.9 L 10^3/uL
(1.2-3.4)
Lymphocytes % 17.7 L %
(20.5-51.1)
Monocytes % 9.9 H %
(1.7-9.3)
Eosinophils % 6.3 H %
(0-6)
Chloride 109 H mmol/L
(98-107)
BUN 21 H mg/dl
(9-20)
Glucose 110 H mg/dl
(70-99)
12/28/24 09:29
12/28/24 09:29
Vital Signs
Initial and Last Documented VS:
Initial Vital Signs
Temp Pulse Resp BP Pulse Ox
97.9 F 103 20 161/101 95
12/28/24 09:13 12/28/24 09:13 12/28/24 09:13 12/28/24 09:13 12/28/24 09:13
Last Documented Vital Signs
Temp Pulse Resp BP Pulse Ox
97.9 F 65 18 124/89 98
12/28/24 09:13 12/28/24 11:19 12/28/24 11:19 12/28/24 11:19 12/28/24 11:19
MDM/Problems Addressed
Differential Diagnosis Includes:
Patient with no significant pain at this time. Clinically a relatively low suspicion for incarcerated hernia although is described on her previous CT. No acute colitis symptoms. Workup in progress.
*Radiology
Radiology exam reviewed: radiology read reviewed (periumbilical hernia containing fat. No other acute findings)
*Pulse Oximetry
SaO2: 95
Oxygen Mode of Delivery: Room air
Patient hypoxic: no
*Critical Care Note
Total Time (30-74mins, 75-104mins- exclusive of procedures): Not Applicable
Data Reviewed
Review of Other/Old Records Reveals: Labs, Records, Radiology Studies and Testing
Update Note
Update Note:
Patient medically stable and nontoxic. In no distress. Not incarcerated hernia. Colitis resolved. Discharged to follow-up. Not describing UTI symptoms.
ED Attending Note
-
Portions of this chart may have been created with voice recognition software.� Occasional wrong word or��sound alike� substitutions may have occurred due to the inherent limitations of voice recognition software.
Discharge Plan
Departure
Patient Disposition: Home (Routine Discharge)
Date of Disposition: 12/28/24
Time of Disposition: 12:48
Patient with high blood pressure during this ER visit?: Yes
Discharge Problem:
Periumbilical hernia, Abdominal pain, Hernia
Instructions: Abdominal Hernia, Abdominal Pain, BLOOD PRESSURE
Prescriptions:
No Action
benazepril 10 mg Tablet
10 mg PO DAILY
rosuvastatin 20 mg Tablet
20 mg PO DAILY
multivitamin Tablet
1 tab PO DAILY
aspirin 81 mg Tablet,Chewable
81 mg PO DAILY
amoxicillin-pot clavulanate 875-125 mg tablet
1 tab PO BID 10 Days Qty: 20 0RF
Referrals:
John Paul Fink MD [Active, Surgical] - Next open appointment
Lachelle Poe CRNP [Family Provider, General] - Follow up in 2-3 days
Interventions
Interventions:
*Risk Screen - Suicide Last Done: 12/28/24 09:13
*General Assessment Last Done: 12/28/24 11:20
*Neglect/Abuse Screening Last Done: 12/28/24 11:20
*ED- Fall Risk Assessment Last Done: 12/28/24 11:20
*ED COVID-19 Vaccine History Last Done: 12/28/24 11:20
*ED Influenza Vaccine History Last Done: 12/28/24 11:20
RY-Oryejn-Bomhixcbmy Assessment Last Done: 12/28/24 09:31
Discharge Date and Time
Print Language: SLOVENIAN
[2024-12-28] MEDS: OMNIPAQUE 50 ML PO (09:47)
[2024-12-28] MEDS: NSS 500 IV (10:03)
[2024-12-28 10:06] LABS: ALT (SGPT) 45 U/L (0-50); AST (SGOT) 31 U/L (17-59); Albumin 4.2 g/dl (3.5-5.0); Alkaline Phosphatase 73 U/L (38-126); Blood Urea Nitrogen 21 mg/dl (9-20); Calcium 9.3 mg/dl (8.4-10.2); Carbon Dioxide 28 mmol/L (22-30); Chloride 109 mmol/L (98-107); Glucose 110 mg/dl (70-99); Potassium 4.5 mmol/L (3.5-5.1); Sodium 141 mmol/L (135-145); Total Protein 6.8 g/dl (6.3-8.2); eGFR > 60.00
[2024-12-28 11:00] LABS: Lipase 106 U/L (23-300)
[2024-12-28 11:19] VITALS: BP 124/89
[2024-12-28 13:29] VITALS: BP 142/95
== END 2024-12-28 13:30 | disposition home or self-care (01) ==
LOC: EMR 09:10
PROVIDERS: EMERGENCY PHYSICIAN Emergency Medicine; FAMILY PHYSICIAN Nurse Practitioner Adult Health
DX: K42.9 Umbilical hernia without obstruction or gangrene (principal); R10.9 Unspecified abdominal pain; I10 Essential (primary) hypertension; E78.00 Pure hypercholesterolemia, unspecified
CPT/HCPCS: 96360; 96361; 99284; 74177; 80053; 83690; 85025; Q9967

== ENCOUNTER 2024-12-31 19:36 | Emergency (ER) | payer MEDICARE, SELFPAY ==
[2024-12-31 19:39] VITALS: BP 157/98
[2024-12-31 20:04] LABS: Hematocrit 43.0 % (39.0-52.0); Hemoglobin 14.3 g/dL (13.0-18.0); Mean Corp Hgb Conc. 33.3 g/dL (33.0-37.0); Mean Corpuscular Volume 91.5 fL (80.0-94.0); Nucleated Red Blood Cells % 0 % (-); Platelet Count 157 10^3/uL (130-400); Red Cell Dist. Width 12.6 % (11.5-14.5)
[2024-12-31 20:19] LABS: ALT (SGPT) 53 U/L (0-50); AST (SGOT) 37 U/L (17-59); Albumin 4.1 g/dl (3.5-5.0); Alkaline Phosphatase 77 U/L (38-126); Blood Urea Nitrogen 21 mg/dl (9-20); Calcium 9.0 mg/dl (8.4-10.2); Carbon Dioxide 27 mmol/L (22-30); Chloride 109 mmol/L (98-107); Glucose 108 mg/dl (70-99); Potassium 4.5 mmol/L (3.5-5.1); Sodium 141 mmol/L (135-145); Total Protein 6.8 g/dl (6.3-8.2); eGFR > 60.00
[2024-12-31 23:10] VITALS: BMI 32.1
[2024-12-31 23:13] VITALS: BP 144/81
--- NOTE | 2024-12-31 23:30 | ED.GENMED ---
History of Present Illness
General
Chief Complaint: Anal/Rectal Problem
Time Seen by Provider: 12/31/24 22:46
History of Present Illness
History of Present Illness:
69-year-old male presents to the emergency department for evaluation of a 'gross' coming from his rectum that is painful to wipe. Denies any blood in the toilet bowl or blood when wiping. Notes significant itching to the area as well. No
abdominal pain or fever
Past History
Past History
ED Past Medical History: HTN, Hypercholesterolemia and Other (UC, PNA, )
ED Past Surgical History: Tonsilectomy and Other (Hernia repair)
Social History
Tobacco: Non-smoker
Alcohol: Occasional
Drug: None
Personal:
Living: alone
Employment: Employed
Review of Systems
Review of Systems
Allergies reviewed?: Yes
All Other Systems: ROS reviewed and negative except as documented in HPI and ROS
Phy Exam
Physical Exam
Physical Exam:
GEN: Well appearing, NAD, WDWN
HEENT: Oral mucosa moist, no scleral icterus
Cardiac: Regular rate
Lung: No respiratory distress, no tachypnea
Rectum: Prolapsed external hemorrhoids to the left anterior as well as anterior midline, skin tag noted as well
MSK: No gross deformity or injuries
Skin: Good color, no pallor or jaundice, no rashes
Neuro: AO x3, moves all extremities freely
Psych: Calm, cooperative
Course
Orders/Labs/Results
Orders:
Orders
12/31/24 19:49
Complete Blood Count/With Diff Urgent
Comprehensive Metabolic Panel Urgent
Abnormal Lab Results
12/31/24
19:49
MPV 10.8 H fL
(7.4-10.4)
Absolute Monos (auto) 0.7 H 10^3/uL
(0.1-0.6)
Lymphocytes % 19.9 L %
(20.5-51.1)
Monocytes % 9.6 H %
(1.7-9.3)
Eosinophils % 6.2 H %
(0-6)
Chloride 109 H mmol/L
(98-107)
BUN 21 H mg/dl
(9-20)
Glucose 108 H mg/dl
(70-99)
ALT 53 H U/L
(0-50)
12/31/24 19:49
12/31/24 19:49
Vital Signs
Initial and Last Documented VS:
Initial Vital Signs
Temp Pulse Resp BP Pulse Ox
98.0 F 80 19 157/98 97
12/31/24 19:39 12/31/24 19:39 12/31/24 19:39 12/31/24 19:39 12/31/24 19:39
Last Documented Vital Signs
Temp Pulse Resp BP Pulse Ox
98.0 F 80 19 144/81 97
12/31/24 19:39 12/31/24 19:39 12/31/24 19:39 12/31/24 23:13 12/31/24 23:30
MDM/Problems Addressed
MDM/Problems Addressed:
Discussed bowel regimen and recommend outpatient colorectal surgery evaluation, exam consistent with prolapsed hemorrhoids no evidence for perirectal/perianal abscess
*Pulse Oximetry
SaO2: 97
Oxygen Mode of Delivery: Room air
Patient hypoxic: no
*Critical Care Note
Total Time (30-74mins, 75-104mins- exclusive of procedures): Not Applicable
ED Attending Note
-
Portions of this chart may have been created with voice recognition software.� Occasional wrong word or��sound alike� substitutions may have occurred due to the inherent limitations of voice recognition software.
Discharge Plan
Departure
Patient Disposition: Home (Routine Discharge)
Date of Disposition: 12/31/24
Time of Disposition: 23:30
Patient with high blood pressure during this ER visit?: No
Discharge Problem:
External prolapsed hemorrhoids
Instructions: Hemorrhoids (DC)
Prescriptions:
New
hydrocortisone acetate [Anucort-HC] 25 mg suppository
25 mg [place] DAILY 7 Days Qty: 12 0RF
No Action
benazepril 10 mg Tablet
10 mg PO DAILY
rosuvastatin 20 mg Tablet
20 mg PO DAILY
multivitamin Tablet
1 tab PO DAILY
aspirin 81 mg Tablet,Chewable
81 mg PO DAILY
amoxicillin-pot clavulanate 875-125 mg tablet
1 tab PO BID 10 Days Qty: 20 0RF
Referrals:
Lionel Fonseca MD [Active, ColoRectal]
Lachelle Poe CRNP [Family Provider, General]
Activity Restrictions/Additional Instructions:
Miralax 17g (one capful) daily
Colace (docusate) 100mg twice daily
Follow up with colorectal surgery
Interventions
Interventions:
*Risk Screen - Suicide Last Done: 12/31/24 19:42
*General Assessment Last Done: 12/31/24 23:14
*Neglect/Abuse Screening Last Done: 12/31/24 19:42
*ED- Fall Risk Assessment Last Done: 12/31/24 23:14
*ED COVID-19 Vaccine History Last Done: 12/31/24 23:14
*ED Influenza Vaccine History Last Done: 12/31/24 23:14
*Nursing Disposition Last Done: 12/31/24 23:49
NU-Jponde-Trcsxpdnuq Assessment Last Done: 12/31/24 23:49
ED-Skin Assessment Last Done: 12/31/24 23:14
Discharge Date and Time
Discharge Date/Time: 12/31/24 23:52
Print Language: INDONESIAN
== END 2024-12-31 23:52 | disposition home or self-care (01) ==
LOC: EMR 19:36
PROVIDERS: Emergency Medicine; EMERGENCY PHYSICIAN Emergency Medicine; FAMILY PHYSICIAN Nurse Practitioner Adult Health
DX: K64.8 Other hemorrhoids (principal); I10 Essential (primary) hypertension; E78.00 Pure hypercholesterolemia, unspecified
CPT/HCPCS: 99283; 80053; 85025

== ENCOUNTER 2025-02-23 06:29 | Day surgery (SDC) | payer MEDICARE, SELFPAY ==
--- NOTE | 2025-02-21 16:34 | PTCARENOTE ---
Abn ECG, See prior ECG dated 03/07/2024 noting prior history.
[2025-02-23] VITALS (8 sets, daily range): BP systolic 122–159; BP diastolic 84–98; BMI 30.7
[2025-02-23] MEDS: NORMOSOL-R/PLASMALYTE-A 1000 IV (13:56)
[2025-02-23] MEDS: TYLENOL 1000 MG PO (13:56)
== END 2025-02-23 19:48 | disposition home or self-care (01) ==
LOC: SDS 06:29
PROVIDERS: ATTENDING PHYSICIAN Surgery
DX: K62.89 Other specified diseases of anus and rectum (principal); K64.9 Unspecified hemorrhoids
CPT/HCPCS: 46230; 88304; 93005